=== PATIENT | female | born 1980 | race Caucasian/White ===

== ENCOUNTER 2025-09-06 08:40 | Day surgery (SDC) | payer BC ==
--- NOTE | 2025-08-31 12:48 | ELECTROCARDIOGRAPH REPORT ---
[facility] Test Date: 2025-08-31 Test Time: 12:45:38 Pat Name: ALL LOVE Department: [facility]-PRE-OP Patient ID: [facility]-[id number] Room: Gender: F Php Mysql Web Developer: AMI : 1980 Requested By: SUZIE LAZARO Order Number: [id number] Reading MD: Dr. CELENA Murrell Measurements Intervals [place] Rate: 69 P: 61 VT: 140 QRS: 49 QRSD: 83 T: 38 QT: 383 QTc: 411 Interpretive Statements Sinus rhythm Electronically Signed On 08-31-2025 17:04:[address] CELENA Murrell Please click the below link to view image of tracing.
[2025-08-31 13:24] LABS: MEAN PLATELET VOLUME 10.9 FL (7.4-10.4); PRE OP HEMATOCRIT 36.0 % (35.0-45.0); PRE OP HEMOGLOBIN 11.5 g/dL (12.0-16.0); PRE OP PLATELET COUNT 187 X10'3 (140-440); PRE OP WHITE BLOOD COUNT 11.9 10'3 (4.8-10.8); RED CELL DISTRIBUTION WIDTH 18.8 % (11.5-14.5)
[2025-08-31 13:48] LABS: CREATININE 0.61 MG/DL (0.40-0.90); PRE OP ALT 40 U/L (30-65); PRE OP ANION GAP 7 (8-16); PRE OP AST 33 U/L (10-37); PRE OP BILIRUB, TOTAL 0.2 MG/DL (0.0-1.0); PRE OP GLUCOSE 96 MG/DL (70-104); PRE OP POTASSIUM 3.8 MMOL/L (3.4-5.1); PRE OP SODIUM 140 MMOL/L (135-145); TOTAL CARBON DIOXIDE 26.5 MMOL/L (24-32); eGFR > 90 ML/MIN
[2025-08-31 14:07] LABS: LARGE PLATELETS MODERATE; PLATELET ESTIMATE NORMAL
[2025-09-06] VITALS (9 sets, daily range): BP systolic 99–128; BP diastolic 61–86; PULSE 68–81; RESP 14–19; TEMP 98.1; O2SAT 93–98
[~2025-09-06] VITALS: Ht 154.9 cm; Wt 109.1 kg
[2025-09-06] MEDS: DOCUMENT DATE & TIME OF BETA-BLOCKER PO ONE (05:30)
[~2025-09-06 08:40] MED LIST: ACYC-128 PO; ALBU18HF2 INH; ALPR1TAB7 PO; CYCL-1 PO; DULO60CA65 PO; LAMO200T10 PO; MARIJUANA INH; METO200T37 PO; OMEP40CA21 PO; ONDA-243 PO; QUET-1 PO
[2025-09-06] MEDS: ringers solution, lacted 1,000 ML IV SCH (09:38)
[2025-09-06] MEDS ORDERED: fentaNYL/PF 50MCG/1 ML 2ML syringe IV PRN ×2 (09:45)
[2025-09-06] MEDS ORDERED: labetalol 20mg/4ml (5mg/ml) syringe IV PRN (09:45)
[2025-09-06] MEDS ORDERED: ringers solution, lacted 1,000 ML IV SCH ×2 (09:45)
[2025-09-06] MEDS ORDERED: ondansetron/PF 4mg/2ml inj IV PRN (09:45)
[2025-09-06] MEDS ORDERED: HYDROmorphone inj. 0.5 MG/0.5 ML DISP.SYRIN IV PRN ×2 (09:45)
[2025-09-06] MEDS ORDERED: hydrALAZINE 20mg/ml inj. IV PRN (09:45)
[2025-09-06] MEDS ORDERED: ceFAZolin 2gm/dext,iso 50mL 50 ML IV ONE (10:10)
[2025-09-06] MEDS ORDERED: BUPIVAcaine 0.5% inj/PF 30 ML ONE (11:06)
[2025-09-06] MEDS ORDERED: BUPIVAcaine/PF 5 mg/ml 10ml ONE (11:06)
[2025-09-06] MEDS ORDERED: BUPIVACAINE liposomal/PF 13.3 MG/ML 10mL vial IM ONE (11:07)
[2025-09-06 11:09] LABS: LEUKOCYTE ESTERASE ,URINE NEGATIVE (Neg); NITRITES, URINE NEGATIVE (Neg); OCCULT BLOOD,URINE NEGATIVE (Neg); UA COLLECTION TYPE NON-SPECIFIED
[2025-09-06] MEDS ORDERED: fentaNYL/PF 50MCG/1 ML 2ML syringe ONE (11:10)
[2025-09-06] MEDS ORDERED: MIDAZolam 1 MG/ML 5ML VIAL ONE (11:10)
[2025-09-06] MEDS ORDERED: BUPIVAcaine 2.5mg/ml inj 50ml vial (contains preservative) ONE (11:13)
[2025-09-06] MEDS ORDERED: bacitracin 15gm ointment TP ONE (11:14)
[2025-09-06] MEDS ORDERED: acetaminophen 1,000mg/100ml IV 100 ML IV ONE ×2 (12:08→12:10)
[2025-09-06] MEDS ORDERED: dexamethasone sod phosphate 4mg/ml inj. ONE (12:08)
[2025-09-06] MEDS ORDERED: ondansetron/PF 4mg/2ml inj ONE (12:08)
[2025-09-06] MEDS ORDERED: LIDOcaine 2% (20mg/ml) 5ml vial ONE (12:10)
[2025-09-06] MEDS ORDERED: propofol inj 20 ML IV ONE (12:10)
--- NOTE | 2025-09-06 12:50 | ANESTHESIA RECORDS ---
Nerve Block Providers to CC ~ Diagnosis: Nerve Block requested by: SUZIE LAZARO DPJeet Neuraxial/Peripheral Nerve Block requested for Post-operative analgesia by Physician above DIAGNOSIS: Post-operative pain. (Body Area) Shoulder: [ ] Arm: [ ] Hand: [ ] Hip: [ ] Knee: [ ] Ankle: [____left ] Foot: [ ] Leg: [ ] Abdomen: [ ] Other: [ ] Post-operative pain expected to be/is inadequately managed by oral or IV medicines. Regional anesthetic expected to facilitate rehabilitation and/or discharge from facility. Other:[ ] Procedure Performed: Femoral / Saphenous: Left Popliteal Posterior: Left Time out Done?: Yes Time of Time out: 11:45 Procedure Details: PROCEDURE DETAILS: Risks, benefits and alternatives explained Informed consent obtained, and patient wishes to proceed Conscious sedation with indicated monitors Patient positioned, pertinent anatomy defined, sterile technique used Needle used: [ ] 3 1/8 inch Stimuplex Ultra 22ga [ ] 4 inch Stimuplex Ultra 20ga [ X] 6 inch Stimuplex Ultra 20ga [ ] 6 inch, Quikbloc over the needle catheter set 20ga [ ] 4 inch Quikbloc over the needle catheter set 20ga [ ]Other: [ ] Loss of twitch @ [ 0.5 ]mA [X ] Single Injection [ ] Catheter Ultrasound Guidance Used: [X ] Yes [ ] No Attempts:[__1,11 ] Medicines injected: [ ]Clonidine Amt:[ ] [ ]Dexamethasone Amt:[ ] [ ]Ropivacaine Amt:[ ] [ X ]Bupivacaine Amt:[__0.5% 40 c.c ] [ ]Lidocaine Amt:[ ] [ X ]Exparel 1.33%:[_20 c.c ] [ ]Epinephrine Amt[ ] [ ]Other: [ ] Intermittent aspiration during local anesthetic administration No symptoms of intraneural or intravenous injection Patient tolerated procedure well Comments Left sciatic nerve block:: Left posterior thigh is examined and poor quality exam due to morbid obesity of thigh. Needle is approached laterlly and elicited foot contractions upt 0.4 mamp. . 35 c.c local mi is injected,spread is noted. ultrasound image is documented. Left Adductor canal block: : Left mid medial thigh is examined with ultrasound and Adductor canal and vessels are identified. Needle is in the canal and upon negative aspirations ,localmix is injected. spread is noted. Ultrasound image is captured,documented. MOE JOHNSON MD Sep 06, 2025 12:50
--- NOTE | 2025-09-06 15:09 | OPERATIVE REPORT ---
DATE OF SURGERY: 09/06/2025 DICTATING PHYSICIAN: CHRISTI ROMERO DPM, dictating for Balbir Diehl DPM. PREOPERATIVE DIAGNOSIS: Ankle impingement, left. POSTOPERATIVE DIAGNOSIS: Ankle impingement, left. PROCEDURES: * Ankle arthroscopy with extensive debridement. * Subtalar joint arthroscopy with limited debridement. * Gastrocnemius recession, left. SURGEON: Balbir Diehl DPM SIMULATION TECHNICIAN: AMILCAR [email or web address], fellow was required to decrease tourniquet time and help with retraction throughout the duration of the procedure. ANESTHESIA: Dr. Fall. HEMOSTASIS: Thigh tourniquet at 300 mmHg and electrocautery. ESTIMATED BLOOD LOSS: Less than 5 mL. COMPLICATIONS: None. INDICATIONS: This patient had presented with continued left ankle impingement and synovitis visualized upon advanced imaging and due to failed conservative measures, it was deemed necessary to proceed with surgical intervention at this time. DESCRIPTION OF PROCEDURE: She was positioned in the operating room in the supine position with a contralateral SCD on the nonoperative extremity. The patient was secured to the operating room table and a regional block was performed by anesthesia. The left lower extremity was prepped and draped in the usual sterile fashion and the tourniquet and a noninvasive distractor was applied to the left lower extremity. The left lower extremity was then prepped and draped in the usual sterile fashion. The tourniquet was inflated to 300 mmHg. Attention was directed toward the anterior aspect of the left ankle in the interval between the saphenous vein and the tibialis anterior and slightly medial to the tibialis anterior, a spinal needle was introduced into the ankle joint. Once triangulated, a #15 blade was utilized to make a percutaneous incision overlying this entry site and blunt dissection then commenced through capsule into bone. A 2.7-mm 30-degree arthroscope was utilized to perform a thorough 21-point examination of the ankle. There was noted to be extensive synovitis, meniscoid bodies, and fibrous bands located anteriorly impinging upon the ankle joint. There was also noted to be some synovitis and fibrous bands laterally at the level of the syndesmosis. This was extensively debrided and the articular cartilage was inspected and there was noted to be no significant chondral defect. Portals were switched and again thorough debridement was performed, most notably appreciating significant fibrous bands anterolaterally as well as anteromedially. Once thorough debridement had been completed, a 3-0 nylon suture was placed in both portal incisions. Attention was then directed toward the subtalar joint. Percutaneous incisions were made just inferiorly to the fibula and anterolaterally at the level of the sinus tarsi. Blunt dissection commenced through capsule and again a 2.7-cm 30-degree arthroscope was placed about the subtalar joint and this was triangulated with an arthroscopic shaver in the anterolateral portal. The sinus tarsi as well as underlying subtalar joint capsule was debrided of all synovitis. There was a very mild amount of fibrous bands that were carefully debrided. However, it was noted that the extent of this pathology was located in the ankle joint. Once debridement was noted to be adequate, portals were switched in order to visualize more medially adjacent to the joint space and there was noted to be a very mild amount of fibrous band formation, which was debrided. When this was felt to be adequate, 3-0 nylon simple interrupted sutures were placed about both portal incisions. Attention was then directed about the proximal aspect of the gastrocnemius aponeurosis where a 3-4 cm linear incision was made medially. Dissection was deepened through subcutaneous tissue with thick electrocautery was also superficial bleeders and protected upper peroneal neurovasculature. The deep crural fascia was incised exposing the underlying gastrocnemius aponeurosis. After performing careful retraction and utilizing a vaginal speculum to visualize the gastrocnemius aponeurosis. The ankle was held in forced dorsiflexion and this was transected with a #15 blade. There was noted to be improved passive ankle joint dorsiflexion with the knee flexed and extended. The incision was copiously irrigated with normal sterile saline and closed in layers consisting of 3-0 Vicryl for subcutaneous tissue and 3-0 nylon for skin. Dressing was then applied consisting of bacitracin, Adaptic, 4 x 4s, Webril, and a 4-inch Vin bandage. The patient was then placed in a tall CAM boot and was taken to PACU in stable condition with all signs stable throughout the duration of the procedure. She will follow up in the postoperative setting in the office of Dr. Balbir Diehl in 1-2 weeks. BALBIR DIEHL DPM TID: [id number] RECEIPT: [id number] GS/[id number]
== END 2025-09-06 14:41 | disposition home or self-care (01) ==
LOC: PAS 08:40
PROVIDERS: ATTEND Podiatrist Foot & Ankle Surgery
DX: M25.872 Other specified joint disorders, left ankle and foot (principal); M65.972 Unspecified synovitis and tenosynovitis, left ankle and foot; M24.573 Contracture, unspecified ankle; M25.373 Other instability, unspecified ankle; M25.375 Other instability, left foot; G43.909 Migraine, unspecified, not intractable, without status migrainosus; J45.909 Unspecified asthma, uncomplicated; R94.31 Abnormal electrocardiogram [ECG] [EKG]; R73.09 Other abnormal glucose
CPT/HCPCS: 27687; 29897; 29906; 36415; 80053; 81003; 82948; 85025; 93005; A6222; J0131; J0665; J0666; J1100; J2003; J2250; J2405; J2704; J3010; J3490; J7120; Z7506; Z7508; Z7512; 85008; A4215; A4618; A6449; A7000